=== PATIENT | male | born 1940 | race Caucasian/White ===

== ENCOUNTER 2022-09-11 13:24 | Outpatient (CLI) | payer MEDICARE, OTHER ==
[2022-09-11 14:59] LABS: Hemoglobin 12.5 g/dL (13.5-17.5)
[2022-09-11 15:23] LABS: Anion Gap 17 mmol/L (10-20); BUN (Urea Nitrogen) 24 mg/dL (8.4-25.7); Calc. Creatinine Clearance 0 mL/min (70-130); Calcium 9.2 mg/dL (7.8-10.44); Carbon Dioxide 19 mmol/L (23-31); Chloride 104 mmol/L (98-107); Estimated GFR 70; Glucose 123 mg/dL (83-110); Potassium 4.1 mmol/L (3.5-5.1); Sodium 136 mmol/L (136-145)
== END 2022-09-11 13:25 | disposition home or self-care (01) ==
LOC: CSHLAB 13:24
PROVIDERS: ATTEND Otolaryngology Plastic Surgery within the Head & Neck
DX: Z01.818 Encounter for other preprocedural examination (principal); C44.40 Unspecified malignant neoplasm of skin of scalp and neck; C44.202 Unspecified malignant neoplasm of skin of right ear and external auricular canal; R22.1 Localized swelling, mass and lump, neck
CPT/HCPCS: 80048; 85014; 85018; 93005; 93010